=== PATIENT | female | born 2000 | race Caucasian/White ===

== ENCOUNTER 2022-07-13 19:50 | Emergency (ER) | payer BC, SELFPAY ==
--- NOTE | ~2022-07-13 | CT_ITS ---
EXAMINATION: CT abdomen pelvis wo con DATE: 07/13/2022 21:59 INDICATION: hematuria, flank pain TECHNIQUE: Computed tomography (CT) of the abdomen and pelvis was performed without intravenous contr ast. Automated exposure control and iterative reconstruction technique were employed. The dose-length product was 422.08 mGy-cm. COMPARISON: None. FINDINGS: Lower thorax: Unremarkable Liver: Normal. Biliary/Gallbladder: Gallbladder is normal. No bile duct dilation. Pancreas: No mass or duct dilation. Spleen: Normal. Adrenals:No mass. Kidneys: 10 x 5 mm calcification in the right renal pelvis. Additional smaller nonobstructing calculi in the right lower pole. No suspicious mass. No hydronephrosis. GI tract: No small or large bowel dilation. Normal appendix. Mesentery/Peritoneum: No ascites, mass, or free air. Retroperitoneum: No mass. Pelvis: Pelvic organs are within normal limits. Incidental note of a 3.4 cm benign appearing left ova esther cyst. Soft Tissues: Small uncomplicated fat-containing umbilical hernia. Bones: No acute osseous finding. IMPRESSION: 10 mm stone in the right renal pelvis. No hydronephrosis or significant perinephric stranding. No oth er acute abdominopelvic process detected. Reviewed, dictated and finalized at location K. IMPRESSION: 10 mm stone in the right renal pelvis. No hydronephrosis or significant perinep hric stranding. No other acute abdominopelvic process detected.
[2022-07-13 20:09] VITALS: BP 139/97; PULSE 84; RESP 16; TEMP 36.6; O2SAT 100
[2022-07-13 21:09] LABS: Bacteria Urine 1+ /hpf; Need Manual Microscopic Reviewed; RBC Urine >100 /hpf (0-2); Squamous Epithelial Cell Urine Moderate /hpf (Few); WBC Urine 21-50 /hpf
[2022-07-13 21:20] LABS: Appearance Urine Cloudy (Clear); Bilirubin Urine 1+ (Negative); Blood Urine 3+ (Negative); Color Urine Light Red (Yellow); Glucose Urine UA Negative (Negative); Ketones Urine Negative (Negative); Nitrate Urine Negative (Negative); Protein Urine 1+ mg/dL (Negative)
[2022-07-13 21:21] LABS: Leukocyte Esterase Ur 1+ LEU/UL (Negative); Urobilinogen Urine 0.2 mg/dL (<2.0)
[2022-07-13 21:22] LABS: Add Urine Microscopic? YES
[2022-07-13] MEDS: SULFAMETHOXAZOLE/TRIMETHOPRIM 800/160 MG DS TABLET 1 TAB PO (22:48)
--- NOTE | 2022-07-13 23:33 | ED.FEMALEGU ---
HPI - Female Genitourinary General Chief complaint: Urogenital-Female Stated complaint: hematuria Time Seen by Provider: 07/13/22 22:03 History of Present Illness HPI Narrative: Patient this morning noticed bright red blood in her urine, this is never happened before, also some vague lower back pain and some mild feeling of distention. No fevers or chills, nausea or vomiting, no burning with urination. Has had UTIs before but this feels different. Related Data Allergies Allergy/AdvReac Type Severity Reaction Status Date / Time Penicillins Allergy Rash Verified 07/13/22 20:09 Review of Systems Review of Systems: CONST: No fever. HEENT: No sore throat C/V: No chest pain RESP: No cough GI: No nausea or vomiting : Hematuria M/S: No joint pain. SKIN: No rash. NEURO: [No headache or focal numbness or weakness] PSYCH: [No depression] Exam Narrative: EXAMINATION OF ORGAN SYSTEMS/BODY AREAS: Constitutional: Vital signs per nursing GENERAL:[No acute distress, non-toxic appearing.] HEAD: Normal with no signs of head trauma. EYES: EOMI, conjunctiva normal ENT: Hearing grossly intact LUNGS: Nonlabored breathing. HEART: [Regular rate and rhythm] ABD: [Soft], non[tender to palpation], no CVA tenderness EXT: Normal range of motion SKIN: [No rashes or lesions.] NEURO: [Alert and oriented x 3. No gross focal sensory or strength deficits.] PSYCH: Normal affect Course Vital Signs Vital signs: Vital Signs Temperature 97.9 F 07/13/22 20:09 Pulse Rate 84 07/13/22 20:09 Respiratory Rate 16 07/13/22 20:09 Blood Pressure 139/97 H 07/13/22 20:09 Pulse Oximetry 100 07/13/22 20:09 Oxygen Delivery Room Air 07/13/22 20:09 Temperature 97.9 F 07/13/22 20:09 Pulse Rate 84 07/13/22 20:09 Respiratory Rate 16 07/13/22 20:09 Blood Pressure 139/97 H 07/13/22 20:09 Pulse Oximetry 100 07/13/22 20:09 Oxygen Delivery Room Air 07/13/22 20:09 MDM - Female Genitourinary MDM Narrative Medical decision making narrative: 22 year-old female patient presenting with urinary symptoms with hematuria. Urinalysis is obtained and positive for signs of infection and blood. Urine culture sent. [ test is negative.] Given the degree of hematuria, I did obtain a CT scan that showed 1 cm stone in the renal pelvis. Case is discussed with urology on-call Dr Rice, given her age, no morbidities, well appearance, lack of pain, we discussed that she was stable for discharge home with follow-up in the clinic, start antibiotics at this time and send culture. Patient started on bactrim and strongly advised to return for any increasing or worsening pain, fevers or vomiting. They expressed understanding of instructions and is discharged in stable condition\ Lab Data Labs: Lab Results 07/13/22 Range/Units 20:17 Urine Color Light red H (Yellow) Urine Appearance Cloudy H (Clear) Urine pH 5.0 (5.0-9.0) Ur Specific [place] 1.000 L (1.001-1.035) Urine Protein 1+ H (Negative) mg/dL Urine Glucose (UA) Negative (Negative) mg/dL Urine Ketones Negative (Negative) mg/dL Ur Blood (Man) 3+ H (Negative) Urine Nitrate Negative (Negative) Urine Bilirubin 1+ H (Negative) Urine Urobilinogen 0.2 (<2.0) mg/dL Add Ur Microanalysis Reviewed Leukocyte Esterase Rfl 1+ H (Negative) AMEYA/UL Urine RBC >100 H (0-2) /hpf Urine WBC 21-50 H /hpf Ur Squamous Epith Cells Moderate H (Few) /hpf Urine Bacteria 1+ H /hpf Urine Casts 3-5 UCG Bedside Result Negative Reference Range: Negative Discharge Plan Discharge Clinical Impression: Urinary tract infection, Nephrolithiasis Patient Disposition: Home, Self-Care Condition: Stable Instructions: Antibiotic Form, Kidney Stones (ED), Urinary Tract Infection in Women (ED), Hematuria (ED) Additional Instructions: Please follow up with the urologis
== END 2022-07-13 23:36 | disposition home or self-care (01) ==
LOC: ANHED 22:56
PROVIDERS: Family Medicine; Emergency Provider Emergency Medicine
DX: N39.0 Urinary tract infection, site not specified (principal); N20.0 Calculus of kidney
CPT/HCPCS: 74176; 81001; 81025; 87077; 87086; 87186; 99284; A9270

== ENCOUNTER 2022-10-10 09:03 | Emergency (ER) | payer BC, SELFPAY ==
--- NOTE | ~2022-10-10 | CT_ITS ---
EXAMINATION: CT abdomen pelvis wo con DATE: 10/10/2022 10:33 INDICATION: Right flank pain. TECHNIQUE: Computed tomography (CT) of the abdomen and pelvis was performed without intravenous contr ast. Automated exposure control and iterative reconstruction technique were employed. The dose-length product was 378.10 mGy-cm. COMPARISON: CT abdomen and pelvis 07/13/2022 FINDINGS: The visualized portions of the lung bases demonstrate minimal atelectasis on the left. No p leural effusion. The heart size is normal. No pericardial effusion. The liver, gallbladder, spleen, p ancreas, and left kidney are normal. There are 2 mm and 1 mm stones in right kidney. There is a 5 mm stone at right ureteropelvic junction. There is mild right hydronephrosis and hydroureter. There is a 4 mm stone in distal right ureter. There are no dilated loops of bowel. The appendix is normal. Ther e are no pathologically enlarged lymph nodes. There is physiologic fluid in the pelvis. 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 There is mild lumbar spondylosis. IMPRESSION: 1. 4 mm stone in distal right ureter and 5 mm stone at right ureteropelvic junction with mild right h ydronephrosis and hydroureter. 2. Nonobstructing right kidney stones. Reviewed, dictated and finalized at location A. IMPRESSION: 1. 4 mm stone in distal right ureter and 5 mm stone at right ureteropelvic junc tion with mild right hydronephrosis and hydroureter. 2. Nonobstructing right kidney stones.
[2022-10-10 09:06] VITALS: BP 144/84; PULSE 78; RESP 16; TEMP 36.2; O2SAT 100
[2022-10-10 09:11] VITALS: BP 153/78; PULSE 91; RESP 16; O2SAT 100
[2022-10-10 09:28] LABS: Basophils Percent Auto 0.3 % (0.2-1.2); Eosinophils Percent Auto 0.2 % (0-4.4); Hematocrit 43.6 % (37.0-47.0); Hemoglobin 13.9 g/dL (12.0-15.0); Immature Granulocyte Absolute 0.07 K/mm3 (0.00-0.031); Immature Granulocyte Percent A 0.6 % (0-0.5); Lymphocytes Absolute Auto 2.39 K/mm3 (0.9-3.2); Lymphocytes Percent Auto 19.5 % (18.3-44.2); Mean Corpuscular HGB Conc 31.9 g/dl (32-36); Mean Corpuscular Hemoglobin 27.1 pg (26-34); Mean Corpuscular Volume 85.2 fl (80-100); Mean Platelet Volume 10.4 fl (7.4-10.4); Monocytes Absolute Auto 0.5 K/mm3 (0.1-0.6); Monocytes Percent Auto 4.2 % (2.6-8.5); Neutrophils Absolute Auto 9.2 K/mm3 (1.3-6.7); Neutrophils Percent Auto 75.2 % (45.5-73.1); Platelet Count Result 366 k/mm3 (150-375); Red Blood Count 5.12 M/mm3 (4.2-5.4); White Blood Count 12.2 K/mm3 (4.5-10.0)
--- NOTE | 2022-10-10 09:46 | ED.ABDPAIN ---
HPI - Abdominal Pain General Chief Complaint: Abdominal Pain <EMMY Brennan Last Filed: 10/10/22 16:21> Stated Complaint: right flank pain <EMMY Brennan Last Filed: 10/10/22 16:21> Time Seen by Provider: 10/10/22 09:14 <EMMY Brennan Last Filed: 10/10/22 16:21> History of Present Illness HPI narrative: 22-year-old female history of UTI and ureteral stone reports for evaluation of right flank pain and suprapubic fullness for 3 days, worsening over the past day. Patient reports the pain starts in her right flank and radiates to her suprapubic region. States there is always pain present, however it does ebb and flow. She reports nausea on the way to the ED today, no vomiting. States she notices pink on the toilet paper when she wipes. Denies fever, body aches or chills, chest pain or shortness of breath, vomiting or diarrhea, dysuria. <EMMY Brennan Last Filed: 10/10/22 16:21> Related Data Home Medications: Home Medications Medication Instructions Recorded Confirmed metformin 500 mg tablet 500 mg PO BID 10/10/22 <EMMY Brennan Last Filed: 10/10/22 16:21> Allergies/Adverse Reactions: Allergies Allergy/AdvReac Type Severity Reaction Status Date / Time Penicillins Allergy Rash Verified 10/10/22 09:15 <EMMY Brennan Last Filed: 10/10/22 16:21> Review of Systems Review of Systems: CONSTITUTIONAL: Denies fever, chills EYES: Denies visual changes, redness, or discharge. ENT: Denies rhinorrhea, congestion, sore throat, or otalgia. CARDIOVASCULAR: Denies chest pain, palpitations, or edema. RESPIRATORY: Denies cough or dyspnea. GASTROINTESTINAL: See HPI GENITOURINARY: See HPI SKIN: Denies rash or itching. MUSCULOSKELETAL: See HPI NEUROLOGIC: Denies headache, numbness, dizziness, or weakness. PSYCHIATRIC: Denies anxiety or depression. <EMMY Brennan Last Filed: 10/10/22 16:21> Exam Narrative: GENERAL: Well-appearing, in no acute distress. HEAD: Normocephalic EYES: PERRLA ENT: Nares clear. Mucous membranes moist. Oropharynx without tonsillar hypertrophy exudate or other lesions. NECK: Supple. CHEST: No respiratory distress. Clear to auscultation, no adventitious breath sounds. HEART: Regular rate and rhythm. No murmur heard. Normal peripheral pulses. ABDOMEN: Soft, nontender, normal active bowel sounds. No CVA tenderness bilaterally. EXTREMITIES: Normal range of motion. No edema. SKIN: Warm, dry, no rash. NEURO: No focal deficits. Alert and oriented x3. PSYCH: Normal mood and affect. <EMMY Brennan Last Filed: 10/10/22 16:21> Course Course Emergency Course: Patient does have an allergy to penicillins, however she has tolerated cephalosporins without difficulty in the past. <EMMY Brennan Last Filed: 10/10/22 16:21> Vital Signs Vital signs: Vital Signs Temperature 97.2 F L 10/10/22 09:06 Pulse Rate 78 10/10/22 09:06 Respiratory Rate 16 10/10/22 09:06 Blood Pressure 144/84 H 10/10/22 09:06 Pulse Oximetry 100 10/10/22 09:06 Oxygen Delivery Room Air 10/10/22 09:06 Temperature 97.2 F L 10/10/22 09:06 Pulse Rate 80 10/10/22 12:24 Respiratory Rate 16 10/10/22 12:24 Blood Pressure 130/74 10/10/22 12:24 Pulse Oximetry 99 10/10/22 12:24 Oxygen Delivery Room Air 10/10/22 09:11 <EMMY Brennan Filed: 10/10/22 16:21> Vital Signs Temperature 97.2 F L 10/10/22 09:06 Pulse Rate 78 10/10/22 09:06 Respiratory Rate 16 10/10/22 09:06 Blood Pressure 144/84 H 10/10/22 09:06 Pulse Oximetry 100 10/10/22 09:06 Oxygen Delivery Room Air 10/10/22 09:06 Temperature 97.2 F L 10/10/22 09:06 Pulse Rate 80 10/10/22 12:24 Respiratory Rate 16 10/10/22 12:24 Blood Pressure 130/74 10/10/22 12:24 Pulse Oximetry 99 10/10/22 12:24 Oxygen Delivery Room Air 10/10/22 09:11
[2022-10-10 09:53] LABS: Alanine Aminotransferase 19 U/L (6-35); Albumin Level 4.7 g/dL (3.5-5.1); Alkaline Phosphatase 94 U/L (38-126); Anion Gap 11 mmol/L (8-16); Aspartate Amino Transferase 21 U/L (14-36); Bilirubin,Total 0.3 mg/dL (0.2-1.3); Blood Urea Nitrogen 10 mg/dL (7-17); Calcium 9.3 mg/dL (8.4-10.2); Carbon Dioxide 24 mmol/L (22-30); Chloride 103 mmol/L (98-107); Estimated CRCL calculation 79 ml/min; Estimated Glomerular Filt Rate > 60; Glucose 101 mg/dL (65-110); Potassium 3.9 mmol/L (3.4-5.0); Sodium 138 mmol/L (137-145)
[2022-10-10] MEDS: SODIUM CHLORIDE 0.9% IV 1,000 ML 999 ML IV CONT (10:02)
[2022-10-10 10:03] LABS: Appearance Urine Cloudy (Clear); Bacteria Urine Rare /hpf; Bilirubin Urine Negative (Negative); Blood Urine 3+ (Negative); Color Urine Yellow (Yellow); Glucose Urine UA Negative (Negative); Ketones Urine Trace mg/dL (Negative); Leukocyte Esterase Ur 1+ LEU/UL (Negative); Mucus Urine Present /lpf; Nitrate Urine Negative (Negative); Non Pathogenic Casts 0-2; Protein Urine Trace mg/dL (Negative); RBC Urine >100 /hpf (0-2); Specific Grav Ur 1.018 (1.001-1.035); Squamous Epithelial Cell Urine Many /hpf (Few); Urobilinogen Urine 0.2 mg/dL (<2.0)
[2022-10-10] MEDS: MORPHINE SULFATE (*CRX) 4 MG/ML INJ 2 MG IV PUSH (10:03)
[2022-10-10 10:04] LABS: Add Urine Microscopic? YES
[2022-10-10] MEDS: ONDANSETRON INJ 4 MG/2 ML VIAL IV PUSH (10:04)
[2022-10-10 10:21] LABS: Lipase 78 U/L (23-300)
[2022-10-10 12:24] VITALS: BP 130/74; PULSE 80; RESP 16; O2SAT 99
--- NOTE | 2022-10-19 15:09 | PC.NURSE ---
LATE ENTRY This note is being entered to document information to the patient's record. The following information was omitted on [10/10/22], by [aJmila Rosen RN]. NS stopped at 1100am.
--- NOTE | 2022-10-19 15:10 | PC.NURSE ---
LATE ENTRY This note is being entered to document information to the patient's record. The following information was omitted on [10/10/22], by [Kezia العلي RN]. Stop time for Ceftriaxone 1200pm
--- NOTE | 2022-11-01 07:48 | PC.NURSE ---
late entry 10/10/22 1044 ns bolus infused 1133 rocephin infused
== END 2022-10-10 12:25 | disposition home or self-care (01) ==
PROVIDERS: Emergency Medicine; Emergency Provider Physician Assistant
DX: N13.2 Hydronephrosis with renal and ureteral calculous obstruction (principal); Z87.442 Personal history of urinary calculi; Z87.440 Personal history of urinary (tract) infections
CPT/HCPCS: 36415; 74176; 80053; 81001; 81025; 83690; 85025; 87086; 87088; 96361; 96365; 96375; 99284; J0696; J2270; J2405; J7030